=== PATIENT | male | born 1965 | race Caucasian/White ===

== ENCOUNTER 2019-03-07 12:28 | Emergency (ER) | payer BC, OTHER ==
[2019-03-07 12:41] VITALS: BP 126/66; PULSE 96; TEMP 97.4; BMI 31.4
--- NOTE | 2019-03-07 12:50 | PDOC ---
History of Present Illness - General Chief Complaint: Pain Stated Complaint: PAIN Time Seen by Provider: 03/07/19 12:49 History Source: Patient Exam Limitations: No Limitations Past History - Travel Traveled outside of the country in the last 30 days: No Close contact w/someone who was outside of country & ill: No - Past Medical History Allergies/Adverse Reactions: Allergies Allergy/AdvReac Type Severity Reaction Status Date / Time No Known Allergies Allergy Verified 03/07/19 12:39 Home Medications: Ambulatory Orders NK [No Known Home Medication] 03/07/19 COPD: No Diabetes: Yes - Suicide/Smoking/Psychosocial Hx Smoking History: Never smoked Have you smoked in the past 12 months: No Information on smoking cessation initiated: No Hx Alcohol Use: No Drug/Substance Use Hx: No Review of Systems - Review of Systems Able to Perform ROS?: Yes Comments:: 03/07/19 12:49 CONSTITUTIONAL: Absent: fever, chills, diaphoresis, generalized weakness, malaise, loss of appetite HEENT: Absent: rhinorrhea, nasal congestion, throat pain, throat swelling, difficulty swallowing, mouth swelling, ear pain, eye pain, visual Changes CARDIOVASCULAR: Absent: chest pain, loss of consciousness, palpitations, irregular heart rate, peripheral edema MUSCULOSKELETAL: Present: L shoulder pain Absent: myalgia, arthralgia, joint swelling SKIN: Absent: rash, itching, pallor NEUROLOGIC: Absent: headache, focal weakness or paresthesias, dizziness, unsteady gait, seizure, mental status changes, bladder or bowel incontinence PSYCHIATRIC: Absent: anxiety, depression, suicidal or homicidal ideation, hallucinations. Is the patient limited Yi proficient: No *Physical Exam - Vital Signs Last Vital Signs Temp Pulse Resp BP Pulse Ox 97.4 F L 96 H 16 126/66 98 03/07/19 12:35 03/07/19 12:35 03/07/19 12:35 03/07/19 12:35 03/07/19 12:35 - Physical Exam Comments: 03/07/19 12:49 GENERAL: The patient is awake, alert, and fully oriented, in no acute distress. HEAD: Normal with no signs of trauma. EYES: Pupils equal, round and reactive to light, extraocular movements intact, sclera anicteric, conjunctiva clear. EXTREMITIES: TTP of the L shoulder over the AC joint. (-) drop arm test, empty can test, (+) apprehension sign testing. Pt able to L the arm to 90 degrees without pain. Passive ROM to 120 degrees. Normal range of motion at all other joints, no edema. NEUROLOGICAL: Normal speech, normal gait. PSYCH: Normal mood, normal affect. SKIN: Warm, Dry, normal turgor, no rashes or lesions noted. Medical Decision Making - Medical Decision Making 03/07/19 13:04 the patient is a 54-year-old male with past medical history of non-insulin dependent diabetes, who presents to ER today with left shoulder pain. Patient states that he was gardening yesterday when he was ripping out bushes. He states that he felt something pull in his left shoulder. He states that now when he moves in certain directions he is experiencing pain. Denies fevers, chills, numbness and tingling and weakness to the affected extremity. Patient is right-hand dominant. He has not taken any medication for his pain. A/P: Left shoulder pain On exam tenderness to palpation over the left AC joint. Pain with both active and passive range of motion. Positive apprehension sign test. Labrum injury versus impingement syndrome X-ray ordered, Toradol shot for pain Reevaluate 03/07/19 13:24 No fractures or dislocations noted on the shoulder x-ray. No AC separation We will treat symptomatically with Motrin gives patient a sling as needed for pain. Explained to patient that he should keep they are mobile as much as possible. We will refer to orthopedics Discharge home I discussed the physical exam findings, ancillary test results and final diagnoses with the patient. I answered all of the patient's questions. The patient was satisfied with the care received and felt comfortable with the discharge plan and treatment plan. The Patient agrees to follow up with the primary care physician/specialist within 24-72 hours. Return precautions were given. *DC/Admit/Observation/Transfer Diagnosis at time of Disposition: Shoulder pain Qualifiers: Chronicity: acute Laterality: left Qualified Code(s): M25.512 - Pain in left shoulder - Discharge Dispostion Disposition: HOME Condition at time of disposition: Stable Decision to Admit order: No - Referrals Referrals: Sen Ceron MD [Primary Care Provider] - Andrae Vasques MD [Staff Physician] - - Patient Instructions Printed Discharge Instructions: DI for Shoulder Pain Additional Instructions: You were evaluated for your shoulder pain Your x-ray did not show any broken bones or dislocations Please take Motrin 600mg every 6 hours as needed for pain Follow up with orthopedics this week Return to the ER for any new or worsening symptoms - Post Discharge Activity Forms/Work/School Notes: Back to Work
[2019-03-07] MEDS ORDERED: KETOROLAC TROMETHAMINE 60 MG/2 ML VIAL IM ONE (12:57)
[2019-03-07] MEDS ORDERED: KETOROLAC TROMETHAMINE 60 MG/2 ML VIAL ONE (13:00)
== END 2019-03-07 13:33 | disposition home or self-care (01) ==
LOC: JERFT 12:28
PROC: 3E0233Z Introduction of Anti-inflammatory into Muscle, Percutaneous Approach (ICD-10-PCS; principal; 2019-03-07)
DX: M25.512 Pain in left shoulder (principal); X50.0XXA Overexertion from strenuous movement or load, initial encounter; Y93.H2 Activity, gardening and landscaping; Y92.017 Garden or yard in single-family (private) house as the place of occurrence of the external cause; Y99.8 Other external cause status; E11.9 Type 2 diabetes mellitus without complications; Z79.84 Long term (current) use of oral hypoglycemic drugs
CPT/HCPCS: 73030-TC-LT-FY; 99281-25